=== PATIENT | male | born 1945 | race Asian ===

== ENCOUNTER 2017-04-10 09:48 | Inpatient (IN) | payer MEDICARE ==
[~2017-04-10] VITALS: Ht 177.8 cm; Wt 91.3 kg
[~2017-04-10 09:48] MED LIST: [UNRECOGNIZED DRUG - REMARK]
[2017-04-10] MEDS ORDERED: LACTATED RINGERS 1,000 ML IV SCH (14:53)
[2017-04-10 14:58] VITALS: BP 116/75
[2017-04-10] MEDS ORDERED: BUPIVACAINE/PF 0.25% ONE (16:29)
[2017-04-10] MEDS ORDERED: KETAMINE 10 MG/ML, 20ML ONE (16:31)
[2017-04-10] MEDS ORDERED: FENTANYL PF 250 MCG/5ML ONE (16:31)
[2017-04-10] MEDS ORDERED: HYDROmorphone 2 MG/ML, 1ML ONE (16:32)
[2017-04-10] MEDS ORDERED: FENTANYL PF 100 MCG/2ML ONE (16:32)
[2017-04-10] MEDS ORDERED: MIDAZOLAM 1 MG/ML, 2ML ONE (16:34)
[2017-04-10] MEDS ORDERED: NEOSTIGMINE 1 MG/ML, 10ML ONE (17:31)
[2017-04-10] MEDS ORDERED: GLYCOPYRROLATE 0.2MG/1ML ONE (17:31)
[2017-04-10] MEDS ORDERED: CEFOTETAN 2 GM ONE (17:31)
[2017-04-10] MEDS ORDERED: ONDANSETRON 2MG/ML, 2ML ONE (17:31)
[2017-04-10] MEDS ORDERED: PROPOFOL 10 MG/ML, 20ML ONE (17:31)
[2017-04-10] MEDS ORDERED: SUCCINYLCHOLINE 20 MG/ML, 10ML ONE (17:31)
[2017-04-10] MEDS ORDERED: ROCURONIUM 10 MG/ML ONE (17:31)
[2017-04-10] MEDS ORDERED: PHENYLEPHRINE 10 MG/ML ONE (17:31)
[2017-04-10] MEDS: HYDROmorphone/PF 5 MG, BUPIVACAINE/PF 0.5%, 30ML 62.5 ML in SODIUM CHLORIDE 0.9% 182.5 ML EPIDCONT SCH ×4 (18:27→22:46)
[2017-04-10] MEDS ORDERED: OXYcodone 5 MG/5 ML ORAL.SOL UDC PO PRN (18:30)
[2017-04-10] MEDS ORDERED: MIDAZOLAM 1 MG/ML, 2ML IV PRN (18:30)
[2017-04-10] MEDS ORDERED: MEPERIDINE/PF 25MG/0.5ML IVPush PRN (18:30)
[2017-04-10] MEDS ORDERED: HYDROmorphone 1 MG/ML, 1ML IV PRN (18:30)
[2017-04-10] MEDS ORDERED: DO NOT GIVE XX SCH ×2 (18:30)
[2017-04-10] MEDS ORDERED: LABETALOL 5MG/ML, 20ML IV PRN (18:30)
[2017-04-10] MEDS ORDERED: hydrALAzine 20 MG/ML, 1ML IV PRN ×2 (18:30→23:45)
[2017-04-10] MEDS ORDERED: METOCLOPRAMIDE 5 MG/ML, 2ML IVPush PRN (18:30)
[2017-04-10] MEDS ORDERED: ONDANSETRON 2MG/ML, 2ML IVPush PRN (18:30)
[2017-04-10] MEDS ORDERED: FENTANYL PF 100 MCG/2ML EPI PRN (18:30)
[2017-04-10] MEDS ORDERED: PROMETHAZINE 25 MG/ML, 1ML IV PRN (18:30)
[2017-04-10] MEDS ORDERED: NALOXONE 0.4 MG/ML, 1ML IVPush PRN ×2 (18:30)
[2017-04-10] MEDS ORDERED: FENTANYL PF 100 MCG/2ML IV PRN (18:30)
[2017-04-10] MEDS ORDERED: ONDANSETRON 2MG/ML, 2ML IV PRN (23:45)
[2017-04-10] MEDS ORDERED: POTASSIUM CHLORIDE 20 MEQ in D5%-0.45% NACL 1,000 ML IV SCH (23:45)
[2017-04-10] MEDS ORDERED: ENALAPRILAT 1.25 MG/ML, 2ML IV PRN (23:45)
[2017-04-10] MEDS ORDERED: CEFOTETAN PMX 2GM/50ML 50 ML IVPB SCH (23:45)
[2017-04-11 03:45] VITALS: BP 90/60
[2017-04-11] MEDS: SODIUM CHLORIDE FLUSH 10ML SYR IVF SCH ×2 (04:50→09:00)
[2017-04-11 05:26] LABS: BLOOD UREA NITROGEN 9 mg/dL (7-18)
[2017-04-11] MEDS ORDERED: HEPARIN 5,000 UNITS/ML, 1ML SQ SCH (09:00)
[2017-04-11] MEDS ORDERED: DIPHENHYDRAMINE 50 MG/ML, 1ML IVPush PRN (13:30)
[2017-04-11] MEDS: PIPERACILLIN/TAZO 3.375 GM in SODIUM CHLORIDE 0.9% 50 ML IV SCH ×2 (13:40→19:57)
[2017-04-11] MEDS: ONDANSETRON 2MG/ML, 2ML IV SCH (13:52)
[2017-04-11] MEDS: POTASSIUM CHLORIDE 20 MEQ in D5%-0.45% NACL 1,000 ML IV SCH ×2 (14:57→22:54)
[2017-04-11 18:15] VITALS: BP 107/77
[2017-04-11] MEDS: HYDROmorphone/PF 5 MG, BUPIVACAINE/PF 0.5%, 30ML 62.5 ML in SODIUM CHLORIDE 0.9% 182.5 ML EPIDCONT SCH (19:44)
[2017-04-11] MEDS: DIPHENHYDRAMINE 25 MG CAPSULE PO PRN (19:57)
[2017-04-11 20:19] VITALS: BP 108/73
[2017-04-11] MEDS ORDERED: POTASSIUM CHLORIDE 20 MEQ in D5%-0.45% NACL 1,000 ML IV SCH (23:45)
[2017-04-12] VITALS (7 sets, daily range): BP systolic 108–122; BP diastolic 71–80
[2017-04-12] MEDS: SODIUM CHLORIDE FLUSH 10ML SYR IVF SCH ×3 (00:05→20:00)
[2017-04-12] MEDS: ONDANSETRON 2MG/ML, 2ML IV SCH ×5 (00:05→19:56)
[2017-04-12] MEDS: DIPHENHYDRAMINE 50 MG/ML, 1ML IV PRN ×2 (00:15→20:01)
[2017-04-12] MEDS: PIPERACILLIN/TAZO 3.375 GM in SODIUM CHLORIDE 0.9% 50 ML IV SCH ×4 (01:34→19:52)
[2017-04-12 05:47] LABS: BLOOD UREA NITROGEN 10 mg/dL (7-18)
[2017-04-12] MEDS: POTASSIUM CHLORIDE 20 MEQ in D5%-0.45% NACL 1,000 ML IV SCH ×3 (05:52→22:39)
[2017-04-12] MEDS: DIPHENHYDRAMINE 25 MG CAPSULE PO PRN ×2 (19:58→19:59)
[2017-04-13] VITALS (8 sets, daily range): BP systolic 102–130; BP diastolic 66–84
[2017-04-13] MEDS: PIPERACILLIN/TAZO 3.375 GM in SODIUM CHLORIDE 0.9% 50 ML IV SCH ×4 (02:54→21:03)
[2017-04-13] MEDS: ONDANSETRON 2MG/ML, 2ML IV SCH ×4 (02:55→21:03)
[2017-04-13 05:46] LABS: BLOOD UREA NITROGEN 7 mg/dL (7-18)
[2017-04-13] MEDS: POTASSIUM CHLORIDE 20 MEQ in D5%-0.45% NACL 1,000 ML IV SCH ×2 (06:22→13:33)
[2017-04-13] MEDS: HEPARIN 5,000 UNITS/ML, 1ML SQ SCH ×2 (08:50→17:06)
[2017-04-13] MEDS: SODIUM CHLORIDE FLUSH 10ML SYR IVF SCH ×2 (08:50→21:03)
[2017-04-13] MEDS: DIPHENHYDRAMINE 25 MG CAPSULE PO PRN (11:45)
[2017-04-13] MEDS: HYDROmorphone/PF 5 MG, BUPIVACAINE/PF 0.5%, 30ML 62.5 ML in SODIUM CHLORIDE 0.9% 182.5 ML EPIDCONT SCH (17:04)
[2017-04-13] MEDS ORDERED: chlorPROMAZINE 25 MG/ML, 1ML IV PRN (20:30)
[2017-04-13] MEDS: chlorPROMAZINE 25 MG/ML, 1ML IM PRN (21:10)
[2017-04-14] MEDS: POTASSIUM CHLORIDE 20 MEQ in D5%-0.45% NACL 1,000 ML IV SCH ×4 (00:27→23:12)
[2017-04-14] MEDS: HEPARIN 5,000 UNITS/ML, 1ML SQ SCH (00:30)
[2017-04-14] MEDS: PIPERACILLIN/TAZO 3.375 GM in SODIUM CHLORIDE 0.9% 50 ML IV SCH ×4 (02:58→20:41)
[2017-04-14] MEDS: ONDANSETRON 2MG/ML, 2ML IV SCH ×4 (02:58→20:41)
[2017-04-14 03:15] VITALS: BP 95/62
[2017-04-14 05:29] LABS: BLOOD UREA NITROGEN 8 mg/dL (7-18)
[2017-04-14 08:31] VITALS: BP 101/68
[2017-04-14] MEDS: SODIUM CHLORIDE FLUSH 10ML SYR IVF SCH ×2 (08:59→20:33)
[2017-04-14 11:06] VITALS: BP 117/77
[2017-04-14] MEDS: chlorPROMAZINE 25 MG/ML, 1ML IM PRN (12:39)
[2017-04-14 12:40] VITALS: BP 110/75
[2017-04-14] MEDS ORDERED: SODIUM CHLORIDE 0.9%, 250ML IVBOLUS ONE (14:00)
[2017-04-14 16:00] VITALS: BP 115/66
[2017-04-14] MEDS: HYDROmorphone/PF 5 MG, BUPIVACAINE/PF 0.5%, 30ML 62.5 ML in SODIUM CHLORIDE 0.9% 182.5 ML EPIDCONT SCH (16:07)
[2017-04-14 18:41] VITALS: BP 110/73
[2017-04-15 02:14] VITALS: BP 115/80
[2017-04-15] MEDS: PIPERACILLIN/TAZO 3.375 GM in SODIUM CHLORIDE 0.9% 50 ML IV SCH ×4 (03:00→20:43)
[2017-04-15] MEDS: ONDANSETRON 2MG/ML, 2ML IV SCH ×4 (03:00→20:43)
[2017-04-15 05:11] LABS: BLOOD UREA NITROGEN 6 mg/dL (7-18)
[2017-04-15] MEDS: POTASSIUM CHLORIDE 20 MEQ in D5%-0.45% NACL 1,000 ML IV SCH ×3 (05:56→22:18)
[2017-04-15 07:54] VITALS: BP 137/93
[2017-04-15] MEDS ORDERED: MORPHINE SULFATE 4 MG/ML, 1ML IVPush PRN (08:00)
[2017-04-15] MEDS ORDERED: chlorPROMAZINE 25 MG/ML, 1ML IV PRN (08:00)
[2017-04-15] MEDS ORDERED: CHLORPROMAZINE IM PRN (08:00)
[2017-04-15] MEDS ORDERED: SODIUM CHLORIDE 0.9% IM PRN (08:00)
[2017-04-15] MEDS: HEPARIN 5,000 UNITS/ML, 1ML SQ SCH ×3 (08:42→23:39)
[2017-04-15] MEDS: SODIUM CHLORIDE FLUSH 10ML SYR IVF SCH ×2 (08:42→20:35)
[2017-04-15] MEDS ORDERED: SODIUM CHLORIDE 0.9% IV PRN (10:36)
[2017-04-15] MEDS ORDERED: CHLORPROMAZINE IV PRN (10:36)
[2017-04-15 14:49] VITALS: BP 115/81
[2017-04-15 19:51] VITALS: BP 115/78
[2017-04-16 01:45] VITALS: BP 121/82
[2017-04-16] MEDS: PIPERACILLIN/TAZO 3.375 GM in SODIUM CHLORIDE 0.9% 50 ML IV SCH ×4 (03:00→21:05)
[2017-04-16] MEDS: ONDANSETRON 2MG/ML, 2ML IV SCH ×4 (03:00→21:05)
[2017-04-16] MEDS: POTASSIUM CHLORIDE 20 MEQ in D5%-0.45% NACL 1,000 ML IV SCH ×3 (06:04→21:06)
[2017-04-16 06:09] LABS: BLOOD UREA NITROGEN 4 mg/dL (7-18)
[2017-04-16 07:08] VITALS: BP 129/85
[2017-04-16] MEDS: HEPARIN 5,000 UNITS/ML, 1ML SQ SCH ×3 (08:14→23:45)
[2017-04-16] MEDS: SODIUM CHLORIDE FLUSH 10ML SYR IVF SCH ×2 (09:46→21:00)
[2017-04-16] MEDS ORDERED: BENZOCAINE 20% SPRAY 0.5ML ONE (13:02)
[2017-04-16] MEDS ORDERED: LIDOCAINE GEL 2%, 5ML ONE (13:02)
[2017-04-16 14:07] VITALS: BP 125/82
[2017-04-16 19:56] VITALS: BP 116/77
[2017-04-17 02:58] VITALS: BP 115/75
[2017-04-17] MEDS: ONDANSETRON 2MG/ML, 2ML IV SCH (03:04)
[2017-04-17] MEDS: PIPERACILLIN/TAZO 3.375 GM in SODIUM CHLORIDE 0.9% 50 ML IV SCH ×4 (03:05→23:49)
[2017-04-17 05:22] LABS: BLOOD UREA NITROGEN 3 mg/dL (7-18)
[2017-04-17] MEDS: POTASSIUM CHLORIDE 20 MEQ in D5%-0.45% NACL 1,000 ML IV SCH ×3 (05:43→23:49)
[2017-04-17 07:02] VITALS: BP 122/75
[2017-04-17] MEDS ORDERED: GASTROGRAFIN 120 ML SOLN PO ONE (11:42)
[2017-04-17] MEDS: HEPARIN 5,000 UNITS/ML, 1ML SQ SCH ×2 (12:28→20:11)
[2017-04-17] MEDS: SODIUM CHLORIDE FLUSH 10ML SYR IVF SCH ×2 (12:28→20:11)
[2017-04-17 15:24] VITALS: BP 107/74
[2017-04-17] MEDS: ONDANSETRON 2MG/ML, 2ML IV PRN (16:45)
[2017-04-17 18:37] VITALS: BP 108/68
[2017-04-18 01:59] VITALS: BP 124/79
[2017-04-18] MEDS: HEPARIN 5,000 UNITS/ML, 1ML SQ SCH ×3 (03:50→20:53)
[2017-04-18 05:58] LABS: BLOOD UREA NITROGEN 3 mg/dL (7-18)
[2017-04-18] MEDS: PIPERACILLIN/TAZO 3.375 GM in SODIUM CHLORIDE 0.9% 50 ML IV SCH ×3 (06:03→17:53)
[2017-04-18 06:30] VITALS: BP 118/69
[2017-04-18] MEDS: D5%-0.45NACL+KCL 20MEQ 1,000 ML IV SCH ×2 (08:59→17:54)
[2017-04-18] MEDS: SODIUM CHLORIDE FLUSH 10ML SYR IVF SCH ×2 (09:00→20:54)
[2017-04-18] MEDS ORDERED: POTASSIUM CHLORIDE 20 MEQ in D5%-0.45% NACL 1,000 ML IV SCH (13:30)
[2017-04-18 14:18] VITALS: BP 118/76
[2017-04-18 19:29] VITALS: BP 107/66
[2017-04-18] MEDS: PIPERACILLIN/TAZO/PMX 3.375GM 50 ML IV SCH (23:58)
[2017-04-19] MEDS ORDERED: PIPERACILLIN/TAZO/PMX 3.375GM 50 ML IV SCH
[2017-04-19] MEDS: D5%-0.45NACL+KCL 20MEQ 1,000 ML IV SCH (00:18)
[2017-04-19 00:38] VITALS: BP 114/74
[2017-04-19] MEDS: HEPARIN 5,000 UNITS/ML, 1ML SQ SCH ×3 (04:45→21:24)
[2017-04-19] MEDS: PIPERACILLIN/TAZO/PMX 3.375GM 50 ML IV SCH (05:52)
[2017-04-19 07:05] VITALS: BP 107/69
[2017-04-19] MEDS: SODIUM CHLORIDE FLUSH 10ML SYR IVF SCH ×2 (08:13→21:23)
[2017-04-19] MEDS ORDERED: OXYcodone/APAP 7.5/325MG TABLET PO PRN (10:30)
[2017-04-19 15:23] VITALS: BP 113/78
[2017-04-19] MEDS: ONDANSETRON 2MG/ML, 2ML IV PRN (17:53)
[2017-04-19 19:53] VITALS: BP 110/72
[2017-04-20 01:55] VITALS: BP 116/77
[2017-04-20] MEDS: HEPARIN 5,000 UNITS/ML, 1ML SQ SCH (05:00)
[2017-04-20 06:45] VITALS: BP 113/71
[2017-04-20 09:00] VITALS: BP 113/71
[2017-04-20] MEDS ORDERED: OXYC-302 PO (09:30)
[2017-04-20] MEDS ORDERED: ONDA4TAB10 PO (09:32)
[2017-04-20] MEDS ORDERED: AMOX1TAB61 PO (09:33)
== END 2017-04-20 09:52 | disposition home or self-care (01) | DRG 329 ==
LOC: ORIP 14:41 → EDSEX 16:30 → EDSTATUS 16:30 → 4NOR 23:13 → DCLOUNGE 04-20 09:28
PROVIDERS: ADMIT Surgery; ATTEND Surgery
PROC: 0DBL0ZZ Excision of Transverse Colon, Open Approach (ICD-10-PCS; 2017-04-10)
PROC: 0DBB0ZZ Excision of Ileum, Open Approach (ICD-10-PCS; 2017-04-10)
PROC: 0T7D8ZZ Dilation of Urethra, Via Natural or Artificial Opening Endoscopic (ICD-10-PCS; 2017-04-10)
PROC: 0TP98DZ Removal of Intraluminal Device from Ureter, Via Natural or Artificial Opening Endoscopic (ICD-10-PCS; 2017-04-10)
PROC: 0DTF0ZZ Resection of Right Large Intestine, Open Approach (ICD-10-PCS; principal; 2017-04-10 16:30)
PROC: 0T788DZ Dilation of Bilateral Ureters with Intraluminal Device, Via Natural or Artificial Opening Endoscopic (ICD-10-PCS; 2017-04-10 16:30)
PROC: 0T9B70Z Drainage of Bladder with Drainage Device, Via Natural or Artificial Opening (ICD-10-PCS; 2017-04-13)
DX: C18.2 Malignant neoplasm of ascending colon (principal); K68.19 Other retroperitoneal abscess; K56.7 Ileus, unspecified; R78.81 Bacteremia; N35.8 Other urethral stricture; D12.5 Benign neoplasm of sigmoid colon; E61.1 Iron deficiency
CPT/HCPCS: 36415; 74000; 74020; 74245; 74340; 80048; 81001; 82040; 82962; 85025; 86850; 86900; 87086; 88309; 93005; C1729; J1170; J1644; J2250; J2405; J2543; J2704; J2710; J3010; J3230; J3480; J3490; Q9963; C1765; C1894; J0330; J1200; J2370; J7050; Q0163; S0074